=== PATIENT | female | born 1950 | race Caucasian/White ===

== ENCOUNTER 2019-02-22 18:45 | Inpatient (IN) | payer MEDICARE, MEDICAID ==
[~2019-02-22] VITALS: Ht 170.2 cm; Wt 42.9 kg
[~2019-02-22 18:45] MED LIST: CLON2TAB16 PO; HYDR-36 PO; METH10TA2 PO; ONDA4TAB10 PO; OXYC15TA PO; TRAM-47 PO
--- NOTE | 2019-02-22 19:52 | NUR ---
PT BIB [facility] THROUGH TRIAGE FROM [facility] FOR MEDICAL CLEARANCE. PT STATES HX HEROIN AND AT [facility] FOR DETOX. PT STATES NOTICED A MASS TO RLQ APPROX. 1 WEEK AGO, RECENT INJECTION AT THAT SITE 2 WEEKS AGO. PT AAO X 4, DENIES N/V/FEVER/CHILLS. NAD, ROOM AIR, CALL LIGHT WITHIN REACH, DRESSED IN GOWN AND ATTACHED TO MONITOR. LAB AT BEDSIDE.
[2019-02-22 19:56] LABS: BASOPHILS # (AUTO) 0.01 x10^3/uL (0-0.1); BASOPHILS % (AUTO) 0 % (0-1); EOSINOPHILS # (AUTO) 0.07 x10^3/uL (0-0.4); EOSINOPHILS % (AUTO) 1 % (1-7); LYMPHOCYTES # (AUTO) 1.03 x10^3/uL (1-3.4); LYMPHOCYTES % (AUTO) 15 % (22-44); MD NO; MEAN CORPUSCULAR HEMOGLOBIN 29.7 pg (27.0-34.8); MEAN CORPUSCULAR HGB CONC 32.7 g/dL (32.4-35.8); MEAN CORPUSCULAR VOLUME 90.8 fL (80-100); MEAN PLATELET VOLUME 7.4 fL (7.4-10.4); MONOCYTES # (AUTO) 0.32 x10^3/uL (0.2-0.8); MONOCYTES % (AUTO) 5 % (2-9); NEUTROPHILS # (AUTO) 5.29 x10^3/uL (1.8-6.8); NEUTROPHILS % (AUTO) 79 % (42-75); PLATELET COUNT 238 x10^3/uL (130-400); RED CELL DISTRIBUTION WIDTH 14.2 % (9.6-15.2)
[2019-02-22] MEDS ORDERED: SODIUM CHLORIDE FLUSH 10ML SYR IVF ONE (20:00)
[2019-02-22 20:08] LABS: ALBUMIN 2.8 g/dL (3.4-5.0); ANION GAP 7 mmol/L (5-15); CALCIUM 8.6 mg/dL (8.5-10.1); CHLORIDE 106 mmol/L (98-107); CREATININE 0.81 mg/dL (0.55-1.02)
--- NOTE | 2019-02-22 21:02 | NUR ---
REPORT GIVEN TO CAIN GRIFFIN. CARE TRANSFERRED.
[2019-02-22 21:31] LABS: MICROSCOPIC NOT IND
[2019-02-22 21:37] LABS: CULTURE INDICATED? NO
[2019-02-22] MEDS ORDERED: VANCOMYCIN PER PHARMACY MC PRN ×2 (22:00→22:30)
[2019-02-22] MEDS ORDERED: AMPICILLIN/SULBACTAM 3 GM in SODIUM CHLORIDE 0.9% 100 ML IV ONE (22:00)
--- NOTE | 2019-02-22 22:02 | NUR ---
CARMEN RN: PT MOVED FROM 36 TO 38. PT UP TO RESTROOM. STEADY UPON AMBULATION TO AND FROM [facility]. NAD NOTED. PT AWARE WE ARE WAITING ON LAB/IMAGING RESULTS AND RECHECK BY DOROTHY HALL.
[2019-02-22] MEDS: SODIUM CHLORIDE 0.9% 1,000 ML IV SCH (22:20)
[2019-02-22] MEDS ORDERED: VANCOMYCIN PMX 1GM/200ML 200 ML IV ONE (22:30)
[2019-02-22] MEDS ORDERED: OXYcodone/APAP 5/325MG TABLET PO ONE (22:30)
[2019-02-22] MEDS ORDERED: OMNIPAQUE 350 MG/ML, 100ML BOTTLE ONE (23:03)
[2019-02-22] MEDS ORDERED: BUPR1FIL5 PO (23:07)
[2019-02-23 00:01] VITALS: BP 169/82
[2019-02-23] MEDS: SODIUM CHLORIDE 0.9% 1,000 ML IV SCH ×2 (00:08→19:46)
[2019-02-23] MEDS ORDERED: OXYcodone/APAP 5/325MG TABLET PO PRN ×2 (00:30→06:30)
[2019-02-23] MEDS ORDERED: PHARMACOKINETIC MONITORING MC PRN (02:30)
[2019-02-23] MEDS ORDERED: PHARMACOKINETIC CONSULTATION MC ONE (02:30)
[2019-02-23 05:02] LABS: BASOPHILS # (AUTO) 0.01 x10^3/uL (0-0.1); BASOPHILS % (AUTO) 0 % (0-1); EOSINOPHILS # (AUTO) 0.09 x10^3/uL (0-0.4); EOSINOPHILS % (AUTO) 2 % (1-7); LYMPHOCYTES # (AUTO) 1.09 x10^3/uL (1-3.4); LYMPHOCYTES % (AUTO) 22 % (22-44); MD NO; MEAN CORPUSCULAR HEMOGLOBIN 30.3 pg (27.0-34.8); MEAN CORPUSCULAR HGB CONC 33.4 g/dL (32.4-35.8); MEAN CORPUSCULAR VOLUME 90.7 fL (80-100); MEAN PLATELET VOLUME 7.3 fL (7.4-10.4); MONOCYTES # (AUTO) 0.32 x10^3/uL (0.2-0.8); MONOCYTES % (AUTO) 6 % (2-9); NEUTROPHILS # (AUTO) 3.55 x10^3/uL (1.8-6.8); NEUTROPHILS % (AUTO) 70 % (42-75); PLATELET COUNT 215 x10^3/uL (130-400); RED BLOOD COUNT 3.01 x10^6/uL (3.82-5.3); RED CELL DISTRIBUTION WIDTH 14.1 % (9.6-15.2)
[2019-02-23 05:14] LABS: ANION GAP 4 mmol/L (5-15); CALCIUM 7.8 mg/dL (8.5-10.1); CHLORIDE 110 mmol/L (98-107); CREATININE 0.54 mg/dL (0.55-1.02)
[2019-02-23 05:17] LABS: INTERNATIONAL NORMALIZED RATIO 1.03 (0.93-1.1); PROTHROMBIN TIME 10.8 Seconds (9.6-11.5)
[2019-02-23] MEDS: ONDANSETRON 2MG/ML, 2ML IVPush PRN (05:39)
[2019-02-23] MEDS: AMPICILLIN/SULBACTAM 3 GM in SODIUM CHLORIDE 0.9% 100 ML IV SCH ×3 (05:39→22:20)
[2019-02-23] MEDS ORDERED: FENTANYL PF 100 MCG/2ML ONE ×3 (06:52→07:44)
[2019-02-23] MEDS ORDERED: GLYCOPYRROLATE 0.2MG/1ML, 5ML ONE (07:19)
[2019-02-23] MEDS ORDERED: ONDANSETRON 2MG/ML, 2ML ONE (07:19)
[2019-02-23] MEDS ORDERED: NEOSTIGMINE 1 MG/ML, 10ML ONE (07:19)
[2019-02-23] MEDS ORDERED: CEFAZOLIN 1,000 MG ONE (07:19)
[2019-02-23] MEDS ORDERED: ROCURONIUM 10MG/ML,5ML ONE (07:19)
[2019-02-23] MEDS ORDERED: DEXAMETHASONE 4 MG/ML, 1ML ONE (07:19)
[2019-02-23] MEDS ORDERED: PROPOFOL 10 MG/ML, 20ML ONE (07:19)
[2019-02-23] MEDS ORDERED: SUCCINYLCHOLINE 20 MG/ML, 10ML ONE (07:19)
[2019-02-23] MEDS ORDERED: hydrALAzine 20 MG/ML, 1ML IV PRN (07:30)
[2019-02-23] MEDS ORDERED: PROMETHAZINE 25 MG/ML, 1ML IV PRN (07:30)
[2019-02-23] MEDS ORDERED: HALOPERIDOL 5 MG/ML IV PRN (07:30)
[2019-02-23] MEDS ORDERED: MEPERIDINE/PF 25MG/ML,1ML IVPush PRN (07:30)
[2019-02-23] MEDS ORDERED: LABETALOL 5MG/ML, 20ML IV PRN (07:30)
[2019-02-23] MEDS ORDERED: OXYcodone 5 MG/5 ML ORAL.SOL UDC PO PRN (07:30)
[2019-02-23] MEDS: FENTANYL PF 100 MCG/2ML IV PRN ×4 (07:35→07:58)
[2019-02-23] MEDS ORDERED: OXYcodone 5 MG/5 ML ORAL.SOL UDC ONE (07:45)
[2019-02-23] MEDS ORDERED: hydrALAzine 20 MG/ML, 1ML ONE (07:53)
[2019-02-23] MEDS ORDERED: HYDROmorphone 2 MG/ML, 1ML ONE (08:11)
[2019-02-23] MEDS: HYDROmorphone 2 MG/ML, 1ML IVPush PRN ×2 (08:13→08:21)
[2019-02-23] MEDS ORDERED: LORazepam 2 MG/ML, 1ML ONE (08:15)
[2019-02-23] MEDS ORDERED: LORazepam 2 MG/ML, 1ML IVPush PRN (08:30)
[2019-02-23] MEDS ORDERED: MORPHINE SULFATE 4 MG/ML, 1ML ONE (11:11)
[2019-02-23] MEDS: morphine SULFATE 10 MG/ML, 1ML IV PRN ×4 (11:15→20:43)
[2019-02-23] MEDS: OXYcodone/APAP 10/325MG TABLET PO PRN (12:09)
[2019-02-23 13:09] VITALS: BP 148/70
[2019-02-23] MEDS: LORazepam 2 MG/ML, 1ML IVPush PRN ×2 (15:31→22:20)
[2019-02-23 18:54] VITALS: BP 126/75
[2019-02-23 23:22] VITALS: BP 156/80
[2019-02-23] MEDS: VANCOMYCIN 900 MG in SODIUM CHLORIDE 0.9% 100 ML IV SCH (23:59)
[2019-02-24] MEDS: morphine SULFATE 10 MG/ML, 1ML IV PRN ×4 (01:19→17:46)
[2019-02-24] MEDS: OXYcodone/APAP 10/325MG TABLET PO PRN ×4 (02:23→22:09)
[2019-02-24 02:32] VITALS: BP 158/85
[2019-02-24 05:06] LABS: BASOPHILS # (AUTO) 0.02 x10^3/uL (0-0.1); BASOPHILS % (AUTO) 0 % (0-1); EOSINOPHILS # (AUTO) 0.03 x10^3/uL (0-0.4); EOSINOPHILS % (AUTO) 1 % (1-7); LYMPHOCYTES # (AUTO) 1.43 x10^3/uL (1-3.4); LYMPHOCYTES % (AUTO) 31 % (22-44); MD NO; MEAN CORPUSCULAR HEMOGLOBIN 30.6 pg (27.0-34.8); MEAN CORPUSCULAR HGB CONC 33.6 g/dL (32.4-35.8); MEAN CORPUSCULAR VOLUME 91.2 fL (80-100); MEAN PLATELET VOLUME 7.5 fL (7.4-10.4); MONOCYTES # (AUTO) 0.21 x10^3/uL (0.2-0.8); MONOCYTES % (AUTO) 5 % (2-9); NEUTROPHILS # (AUTO) 2.91 x10^3/uL (1.8-6.8); NEUTROPHILS % (AUTO) 63 % (42-75); PLATELET COUNT 254 x10^3/uL (130-400); RED CELL DISTRIBUTION WIDTH 13.8 % (9.6-15.2)
[2019-02-24 05:12] LABS: CHLORIDE 111 mmol/L (98-107)
[2019-02-24 05:17] LABS: ANION GAP 4 mmol/L (5-15); CREATININE 0.64 mg/dL (0.55-1.02)
[2019-02-24] MEDS: AMPICILLIN/SULBACTAM 3 GM in SODIUM CHLORIDE 0.9% 100 ML IV SCH ×3 (05:59→22:08)
[2019-02-24] MEDS: SODIUM CHLORIDE 0.9% 1,000 ML IV SCH ×2 (06:02→16:30)
[2019-02-24 07:29] VITALS: BP 172/87
[2019-02-24] MEDS ORDERED: ENALAPRILAT 1.25 MG/ML, 1ML IV PRN (08:30)
[2019-02-24 09:15] VITALS: BP 148/76
[2019-02-24] MEDS: HEPARIN 5,000 UNITS/ML, 1ML SQ SCH ×2 (14:04→22:08)
[2019-02-24 14:20] VITALS: BP 146/83
[2019-02-24 19:00] VITALS: BP 147/75
[2019-02-24] MEDS: LORazepam 2 MG/ML, 1ML IVPush PRN ×2 (19:46→23:28)
[2019-02-24] MEDS: ONDANSETRON 2MG/ML, 2ML IVPush PRN (20:56)
[2019-02-24] MEDS ORDERED: DIPHENHYDRAMINE 25 MG CAPSULE PO ONE (21:30)
[2019-02-24] MEDS: VANCOMYCIN 900 MG in SODIUM CHLORIDE 0.9% 100 ML IV SCH (23:28)
[2019-02-25] MEDS: SODIUM CHLORIDE 0.9% 1,000 ML IV SCH ×3 (00:46→22:07)
[2019-02-25 01:02] VITALS: BP 149/87
[2019-02-25] MEDS: morphine SULFATE 10 MG/ML, 1ML IV PRN ×2 (03:49→09:16)
[2019-02-25] MEDS: HEPARIN 5,000 UNITS/ML, 1ML SQ SCH ×3 (06:30→22:04)
[2019-02-25] MEDS: AMPICILLIN/SULBACTAM 3 GM in SODIUM CHLORIDE 0.9% 100 ML IV SCH ×2 (06:30→14:06)
[2019-02-25] MEDS: OXYcodone/APAP 10/325MG TABLET PO PRN ×4 (06:31→19:58)
[2019-02-25 07:12] VITALS: BP 65/16
[2019-02-25 11:24] VITALS: BP 124/64
[2019-02-25 12:25] VITALS: BP 166/80
[2019-02-25 18:44] VITALS: BP 162/84
[2019-02-25] MEDS: LORazepam 2 MG/ML, 1ML IVPush PRN (19:39)
[2019-02-26 01:03] VITALS: BP 178/98
[2019-02-26 01:25] VITALS: BP 154/77
[2019-02-26] MEDS: AMPICILLIN/SULBACTAM 3 GM in SODIUM CHLORIDE 0.9% 100 ML IV SCH ×3 (03:32→19:02)
[2019-02-26] MEDS: HEPARIN 5,000 UNITS/ML, 1ML SQ SCH ×3 (05:52→21:37)
[2019-02-26] MEDS: OXYcodone/APAP 10/325MG TABLET PO PRN ×5 (05:53→21:37)
[2019-02-26 07:16] VITALS: BP 116/68
[2019-02-26] MEDS: morphine SULFATE 10 MG/ML, 1ML IV PRN (09:15)
[2019-02-26] MEDS: SODIUM CHLORIDE 0.9% 1,000 ML IV SCH (11:00)
[2019-02-26 15:05] VITALS: BP 143/75
[2019-02-26] MEDS: VANCOMYCIN 900 MG in SODIUM CHLORIDE 0.9% 100 ML IV SCH ×2 (17:32)
[2019-02-26 18:29] VITALS: BP 139/79
[2019-02-26] MEDS: LORazepam 2 MG/ML, 1ML IVPush PRN ×2 (18:33)
[2019-02-27 00:08] VITALS: BP 148/89
[2019-02-27] MEDS: LORazepam 2 MG/ML, 1ML IVPush PRN ×3 (00:11→19:52)
[2019-02-27] MEDS: SODIUM CHLORIDE 0.9% 1,000 ML IV SCH ×2 (01:00→14:00)
[2019-02-27] MEDS: OXYcodone/APAP 10/325MG TABLET PO PRN ×5 (03:38→21:49)
[2019-02-27] MEDS: AMPICILLIN/SULBACTAM 3 GM in SODIUM CHLORIDE 0.9% 100 ML IV SCH ×2 (03:38→11:07)
[2019-02-27] MEDS: HEPARIN 5,000 UNITS/ML, 1ML SQ SCH ×3 (05:18→21:49)
[2019-02-27 07:00] VITALS: BP 170/83
[2019-02-27 07:24] VITALS: BP 159/76
[2019-02-27] MEDS: ONDANSETRON 2MG/ML, 2ML IVPush PRN (09:10)
[2019-02-27] MEDS: VANCOMYCIN 900 MG in SODIUM CHLORIDE 0.9% 100 ML IV SCH (12:08)
[2019-02-27 13:08] VITALS: BP 146/77
[2019-02-27] MEDS: AMOXICILLIN/CLAV 875-125MG TABLET PO SCH ×2 (13:49→21:48)
[2019-02-27 20:00] VITALS: BP 161/80
[2019-02-27] MEDS: LORazepam 1MG TABLET PO PRN (21:48)
[2019-02-28 01:45] VITALS: BP 151/78
[2019-02-28] MEDS: OXYcodone/APAP 10/325MG TABLET PO PRN ×2 (05:36→20:52)
[2019-02-28] MEDS: LORazepam 1MG TABLET PO PRN ×2 (05:36→21:02)
[2019-02-28] MEDS: HEPARIN 5,000 UNITS/ML, 1ML SQ SCH ×3 (05:37→21:02)
[2019-02-28 07:03] VITALS: BP 167/76
[2019-02-28 12:38] VITALS: BP 123/63
[2019-02-28] MEDS: AMOXICILLIN/CLAV 875-125MG TABLET PO SCH (13:39)
[2019-02-28] MEDS: SODIUM CHLORIDE 0.9% 1,000 ML IV SCH ×3 (17:00→17:14)
[2019-02-28 20:10] VITALS: BP 142/82
[2019-03-01] MEDS: AMOXICILLIN/CLAV 875-125MG TABLET PO SCH ×2 (01:21→13:38)
[2019-03-01 01:57] VITALS: BP 155/81
[2019-03-01] MEDS: SODIUM CHLORIDE 0.9% 1,000 ML IV SCH ×3 (03:15→23:15)
[2019-03-01] MEDS: HEPARIN 5,000 UNITS/ML, 1ML SQ SCH ×3 (06:10→22:33)
[2019-03-01] MEDS: OXYcodone/APAP 10/325MG TABLET PO PRN ×4 (06:13→22:35)
[2019-03-01 07:26] VITALS: BP 158/84
[2019-03-01] MEDS: LORazepam 1MG TABLET PO PRN ×2 (10:34→21:03)
[2019-03-01 14:24] VITALS: BP 151/84
[2019-03-01 19:13] VITALS: BP 158/84
[2019-03-02] MEDS: AMOXICILLIN/CLAV 875-125MG TABLET PO SCH ×3 (01:28→22:31)
[2019-03-02 02:20] VITALS: BP 158/86
[2019-03-02] MEDS: OXYcodone/APAP 10/325MG TABLET PO PRN ×4 (03:52→22:30)
[2019-03-02] MEDS: HEPARIN 5,000 UNITS/ML, 1ML SQ SCH ×3 (06:26→22:30)
[2019-03-02] MEDS: LORazepam 1MG TABLET PO PRN ×2 (06:32→20:24)
[2019-03-02 06:37] VITALS: BP 166/83
[2019-03-02] MEDS: SODIUM CHLORIDE 0.9% 1,000 ML IV SCH (08:46)
[2019-03-02 13:23] VITALS: BP 182/93
[2019-03-02] MEDS ORDERED: POLYETHYLENE GLYCOL 17 GM PACKET ONE (14:47)
[2019-03-02] MEDS ORDERED: DOCUSATE 100 MG CAPSULE ONE (14:48)
[2019-03-02] MEDS ORDERED: SENNOSIDES 8.6 MG TABLET ONE (14:48)
[2019-03-02] MEDS ORDERED: SENNOSIDES 8.6 MG TABLET PO PRN (15:00)
[2019-03-02] MEDS ORDERED: SENNOSIDES 8.8 MG/5 ML ORAL SOL PO PRN (15:00)
[2019-03-02] MEDS ORDERED: DOCUSATE 100 MG CAPSULE PO PRN (15:00)
[2019-03-02] MEDS ORDERED: POLYETHYLENE GLYCOL 17 GM PACKET PO PRN (15:00)
[2019-03-02] MEDS ORDERED: SIMETHICONE 125 MG CHEW TAB PO PRN (15:00)
[2019-03-02] MEDS ORDERED: ONDANSETRON ODT 4 MG ONE (17:42)
[2019-03-02] MEDS: ONDANSETRON 2MG/ML, 2ML IVPush PRN (17:43)
[2019-03-02] MEDS ORDERED: BISACODYL 10 MG SUPP ONE (17:44)
[2019-03-02] MEDS ORDERED: BISACODYL 10 MG SUPP PR PRN (18:00)
[2019-03-02 19:10] VITALS: BP 150/82
[2019-03-03 02:00] VITALS: BP 151/85
[2019-03-03] MEDS: OXYcodone/APAP 10/325MG TABLET PO PRN ×4 (02:50→20:33)
[2019-03-03] MEDS: HEPARIN 5,000 UNITS/ML, 1ML SQ SCH ×3 (06:51→22:53)
[2019-03-03 07:00] VITALS: BP 159/83
[2019-03-03] MEDS: LORazepam 1MG TABLET PO PRN ×2 (09:31→17:58)
[2019-03-03] MEDS: AMOXICILLIN/CLAV 875-125MG TABLET PO SCH ×2 (09:31→22:53)
[2019-03-03 14:00] VITALS: BP 137/86
[2019-03-03 20:04] VITALS: BP 167/91
[2019-03-04] MEDS: LORazepam 1MG TABLET PO PRN ×3 (01:14→20:58)
[2019-03-04] MEDS ORDERED: ONDANSETRON ODT 4 MG PO PRN (01:30)
[2019-03-04 01:57] VITALS: BP 122/68
[2019-03-04] MEDS: OXYcodone/APAP 10/325MG TABLET PO PRN ×3 (03:44→20:58)
[2019-03-04] MEDS: HEPARIN 5,000 UNITS/ML, 1ML SQ SCH ×2 (06:23→17:03)
[2019-03-04 06:50] VITALS: BP 127/74
[2019-03-04 13:33] VITALS: BP 121/68
[2019-03-04 19:09] VITALS: BP 126/72
[2019-03-05 00:30] VITALS: BP 127/70
[2019-03-05] MEDS: HEPARIN 5,000 UNITS/ML, 1ML SQ SCH ×3 (01:31→17:22)
[2019-03-05] MEDS: LORazepam 1MG TABLET PO PRN ×2 (05:26→14:14)
[2019-03-05] MEDS: OXYcodone/APAP 10/325MG TABLET PO PRN (05:26)
[2019-03-05 08:00] VITALS: BP 134/67
[2019-03-05] MEDS ORDERED: OXYcodone/APAP 5/325MG TABLET PO PRN ×2 (10:30→14:30)
[2019-03-05 13:30] VITALS: BP 121/74
[2019-03-05] MEDS: OXYcodone/APAP 5/325MG TABLET PO PRN ×2 (14:45→22:36)
[2019-03-05] MEDS: IBUPROFEN 800 MG TABLET PO PRN ×2 (14:46→22:38)
[2019-03-05 19:07] VITALS: BP 134/81
[2019-03-06] MEDS: HEPARIN 5,000 UNITS/ML, 1ML SQ SCH ×3 (01:05→16:45)
[2019-03-06 01:29] VITALS: BP 150/80
[2019-03-06] MEDS: LORazepam 1MG TABLET PO PRN ×2 (04:32→16:45)
[2019-03-06 07:05] VITALS: BP 162/84
[2019-03-06] MEDS: IBUPROFEN 800 MG TABLET PO PRN ×2 (11:12→20:02)
[2019-03-06] MEDS: OXYcodone/APAP 5/325MG TABLET PO PRN ×2 (11:13→20:02)
[2019-03-06 13:33] VITALS: BP 138/82
[2019-03-06 18:38] VITALS: BP 156/82
[2019-03-07 00:08] VITALS: BP 155/85
[2019-03-07] MEDS: HEPARIN 5,000 UNITS/ML, 1ML SQ SCH ×3 (00:43→17:28)
[2019-03-07] MEDS: LORazepam 1MG TABLET PO PRN ×2 (00:48→22:55)
[2019-03-07] MEDS: OXYcodone/APAP 5/325MG TABLET PO PRN ×2 (06:11→17:05)
[2019-03-07] MEDS: IBUPROFEN 800 MG TABLET PO PRN ×2 (06:11→17:02)
[2019-03-07 07:21] VITALS: BP 133/2
[2019-03-07 13:26] VITALS: BP 121/63
[2019-03-07 19:37] VITALS: BP 124/69
[2019-03-08 00:53] VITALS: BP 117/65
[2019-03-08] MEDS: HEPARIN 5,000 UNITS/ML, 1ML SQ SCH ×3 (01:22→17:00)
[2019-03-08] MEDS: OXYcodone/APAP 5/325MG TABLET PO PRN ×2 (02:16→11:53)
[2019-03-08 07:55] VITALS: BP 129/84
[2019-03-08] MEDS ORDERED: ACETAMINOPHEN 325 MG TABLET PO PRN (11:30)
[2019-03-08] MEDS ORDERED: MORPHINE SULFATE 4 MG/ML, 1ML IVPush PRN (11:30)
[2019-03-08] MEDS: LORazepam 1MG TABLET PO PRN (11:51)
[2019-03-08] MEDS: IBUPROFEN 800 MG TABLET PO PRN (11:51)
[2019-03-08 14:50] VITALS: BP 146/85
[2019-03-08] MEDS ORDERED: SIME125T PO (15:06)
[2019-03-08] MEDS ORDERED: ACET325T26 PO (15:06)
[2019-03-08] MEDS ORDERED: DOCU-131 PO (15:06)
== END 2019-03-08 18:20 | disposition home or self-care (01) | DRG 579 ==
LOC: ED 22:00 → EDIP 22:20 → 4NE 23:27
PROVIDERS: ADMIT Internal Medicine; ATTEND Internal Medicine
PROC: 0T9B70Z Drainage of Bladder with Drainage Device, Via Natural or Artificial Opening (ICD-10-PCS; 2019-02-22)
PROC: 0K9K0ZZ Drainage of Right Abdomen Muscle, Open Approach (ICD-10-PCS; 2019-02-23)
PROC: 0K9L0ZZ Drainage of Left Abdomen Muscle, Open Approach (ICD-10-PCS; principal; 2019-02-23 05:45)
DX: L02.211 Cutaneous abscess of abdominal wall (principal); E43 Unspecified severe protein-calorie malnutrition; M60.009 Infective myositis, unspecified site; F11.20 Opioid dependence, uncomplicated; N39.0 Urinary tract infection, site not specified; Z68.1 Body mass index [BMI] 19.9 or less, adult; M06.9 Rheumatoid arthritis, unspecified; J44.9 Chronic obstructive pulmonary disease, unspecified; G89.4 Chronic pain syndrome; B18.2 Chronic viral hepatitis C; M79.7 Fibromyalgia; F17.210 Nicotine dependence, cigarettes, uncomplicated; K74.60 Unspecified cirrhosis of liver; Z90.710 Acquired absence of both cervix and uterus; Z98.1 Arthrodesis status; Z88.5 Allergy status to narcotic agent
CPT/HCPCS: 36415; 74177; 80048; 80202; 81003; 82040; 82565; 83605; 84145; 85025; 85610; 87040; 87070; 87075; 87076; 87077; 87186; 87205; G0378; J0295; J0690; J1100; J1170; J1644; J2405; J2704; J2710; J3010; J3370; Q0162; Q9967; J0330; J0360; J2060; J2270; J7030; Q0163

== ENCOUNTER 2021-01-01 23:43 | Emergency (ER) | payer MEDICARE, MEDICAID ==
[~2021-01-01] VITALS: Ht 170.2 cm; Wt 50.0 kg
[~2021-01-01 23:43] MED LIST changes: +ACET325T26 PO; +BUPR1FIL5 PO; +DOCU-131 PO; +HYDR-3248 PO; -HYDR-36 PO; -OXYC15TA PO; +OXYC15TA3 PO; +SIME125T PO
--- NOTE | 2021-01-01 23:49 | NUR ---
NEGATIVE STROKE SCALE.
--- NOTE | 2021-01-02 00:27 | NUR ---
PATIENT REPORTS FALLING SATURDAY 12/30 WITH POSITIVE LOC. SHE WAS GOING AFTER HER DOG WHEN SHE FELL ON THE [place]OCK[place]. SHE STATES THE PAIN IS NOW "JUST TOO MUCH". PATIENT ALSO BELIVES SHE HAS A UTI AND HAS BUNING WITH URINATION.
[2021-01-02 00:47] LABS: BASOPHILS % (AUTO) 0 % (0-1); EOSINOPHILS % (AUTO) 4 % (1-7); LYMPHOCYTES % (AUTO) 35 % (22-44); MEAN CORPUSCULAR HGB CONC 34.4 g/dL (32.4-35.8); MEAN PLATELET VOLUME 7.5 fL (7.4-10.4); MONOCYTES % (AUTO) 7 % (2-9); NEUTROPHILS % (AUTO) 54 % (42-75); PLATELET COUNT 198 x10^3/uL (130-400); RED BLOOD COUNT 3.74 x10^6/uL (3.82-5.3); RED CELL DISTRIBUTION WIDTH 13.6 % (9.6-15.2)
[2021-01-02 00:56] LABS: ANION GAP 7 mmol/L (5-15); CALCIUM 8.8 mg/dL (8.5-10.1); CHLORIDE 105 mmol/L (98-107); CREATININE 0.74 mg/dL (0.55-1.02)
--- NOTE | 2021-01-02 00:58 | NUR ---
PATIENT TAKEN TO RESTROOM UPON RETURN FROM CT. UA COLLECTED AND SENT TO LAB.
[2021-01-02] MEDS ORDERED: HYDROmorphone 2 MG/ML, 1ML ONE (01:17)
--- NOTE | 2021-01-02 01:21 | NUR ---
PATIENT MEDICATED PER MAR.
[2021-01-02] MEDS ORDERED: HYDROmorphone 1 MG/ML, 1ML INJ IM ONE (01:30)
[2021-01-02] MEDS ORDERED: HYDROmorphone 2 MG/ML, 1ML IM ONE (01:30)
[2021-01-02 01:35] LABS: MICROSCOPIC AUTO
--- NOTE | 2021-01-02 02:39 | NUR ---
PATIENT ASSISTED TO RESTROOM AFTER SHE RETURNED FROM RADIOLOGY. AMBULATED WITH STEADY GAIT.
[2021-01-02 03:39] VITALS: BP 164/82
--- NOTE | 2021-01-02 03:42 | NUR ---
PATIENT SLEEPING ON CYNTHIA GALVEZ AT THIS TIME, VSS, WILL CONTINUE TO MONITOR.
--- NOTE | 2021-01-02 04:46 | NUR ---
Patient given discharge instructions and they have confirmed that they understand the instructions. Patient ambulatory with steady gait. NAD, all questions answered appropriately, denies additional needs at this time. No personal belongings left in room after discharge.
== END 2021-01-02 04:47 | disposition home or self-care (01) ==
LOC: ED 01-02 01:00
DX: S16.1XXA Strain of muscle, fascia and tendon at neck level, initial encounter (principal); S09.90XA Unspecified injury of head, initial encounter; R55 Syncope and collapse; M47.812 Spondylosis without myelopathy or radiculopathy, cervical region; N39.0 Urinary tract infection, site not specified; R00.0 Tachycardia, unspecified; F17.200 Nicotine dependence, unspecified, uncomplicated; Z72.9 Problem related to lifestyle, unspecified; M19.90 Unspecified osteoarthritis, unspecified site; G89.29 Other chronic pain; Z90.89 Acquired absence of other organs; W01.0XXA Fall on same level from slipping, tripping and stumbling without subsequent striking against object, initial encounter; Y93.89 Activity, other specified; Y92.410 Unspecified street and highway as the place of occurrence of the external cause; Y99.8 Other external cause status
CPT/HCPCS: 36415; 70450; 71101; 72125; 73030; 80048; 81001; 85025; 87077; 87086; 96372; 99285; J1170; 87186

== ENCOUNTER 2021-01-09 19:06 | Emergency (ER) | payer MEDICARE, MEDICAID ==
[~2021-01-09] VITALS: Ht 170.2 cm; Wt 50.0 kg
[2021-01-09] MEDS ORDERED: DEXAMETHASONE 4 MG TABLET PO ONE (20:00)
--- NOTE | 2021-01-09 20:45 | NUR ---
Pt to room from lobby at this time.
--- NOTE | 2021-01-09 20:50 | NUR ---
DR. BELTRÁN AT BEDSIDE.
[2021-01-09] MEDS ORDERED: DEXAMETHASONE 4 MG TABLET ONE (21:00)
[2021-01-09] MEDS ORDERED: SODIUM CHLORIDE FLUSH 10ML SYR IVF ONE (21:00)
[2021-01-09] MEDS ORDERED: SODIUM CHLORIDE 0.9% 1,000ML IVBOLUS ONE (21:00)
[2021-01-09] MEDS ORDERED: IBUPROFEN 600 MG TABLET PO ONE (21:30)
[2021-01-09] MEDS ORDERED: FILTER 0.22 MICRON IV ONE (21:30)
[2021-01-09] MEDS ORDERED: CASIRIVIMAB 600 MG, IMDEVIMAB (REGN10987) 600 MG in SODIUM CHLORIDE 0.9% 250 ML IVPB ONE (21:30)
[2021-01-09 21:41] LABS: BASOPHILS % (AUTO) 1 % (0-1); EOSINOPHILS % (AUTO) 3 % (1-7); LYMPHOCYTES % (AUTO) 32 % (22-44); MEAN CORPUSCULAR HEMOGLOBIN 31.4 pg (27.0-34.8); MEAN CORPUSCULAR HGB CONC 33.8 g/dL (32.4-35.8); MEAN PLATELET VOLUME 7.4 fL (7.4-10.4); MONOCYTES % (AUTO) 7 % (2-9); NEUTROPHILS % (AUTO) 57 % (42-75); PLATELET COUNT 204 x10^3/uL (130-400); RED BLOOD COUNT 3.56 x10^6/uL (3.82-5.3); RED CELL DISTRIBUTION WIDTH 13.2 % (9.6-15.2)
--- NOTE | 2021-01-09 21:47 | NUR ---
ATTEMPT TO PLACED PIV X2.
[2021-01-09 21:50] LABS: ALBUMIN 3.2 g/dL (3.4-5.0); ANION GAP 6 mmol/L (5-15); CALCIUM 8.4 mg/dL (8.5-10.1); CHLORIDE 107 mmol/L (98-107); CREATININE 0.51 mg/dL (0.55-1.02)
[2021-01-09] MEDS ORDERED: IBUPROFEN 600 MG TABLET ONE (22:56)
--- NOTE | 2021-01-09 23:05 | NUR ---
REPORT TO DAE BARLOW. DR. BELTRÁN AT BEDSIDE FOR IV PLACEMENT.
[2021-01-10] MEDS ORDERED: PROCHLORPERAZINE 5 MG/ML, 2ML IVPush ONE
[2021-01-10] MEDS ORDERED: DIPHENHYDRAMINE 50 MG/ML, 1ML IV ONE
[2021-01-10] MEDS ORDERED: DIPHENHYDRAMINE 50 MG/ML, 1ML ONE (00:01)
[2021-01-10] MEDS ORDERED: PROCHLORPERAZINE 5 MG/ML, 2ML ONE (00:01)
[2021-01-10] MEDS ORDERED: ENALAPRILAT 1.25 MG/ML, 2ML IV ONE ×2 (01:00)
[2021-01-10] MEDS ORDERED: ENALAPRILAT 1.25 MG/ML, 1ML ONE (01:15)
--- NOTE | 2021-01-10 01:24 | NUR ---
DR BELTRÁN STARTED AN ULTRASOUND IV AND I INFUSED IV REGENERON MEDICATION. PT TOLERATED WELL WITH NO ADVERSE REACTIONS. PT WITH HYPERTENSION, DR BELTRÁN NOTIFIED AND PT MEDICATED WITH IV ANTIHYPERTENSIVES. SEE VS SPREADSHEET
[2021-01-10] MEDS ORDERED: LIDOCAINE 1%, 10ML INFIL ONE (03:30)
--- NOTE | 2021-01-10 04:09 | NUR ---
PT SIGNED CONSENT FOR LP. PT TOLERATED WELL. CSF WALKED TO LAB
[2021-01-10 04:16] LABS: GLUCOSE, CSF 60 mg/dL (40-80); TOTAL PROTEIN,CSF 71 mg/dL (15-45)
[2021-01-10 05:03] VITALS: BP 151/86
--- NOTE | 2021-01-10 05:03 | NUR ---
PT EDUCATED ON TEST RESULTS. PT TO BE DISCHARGED.
== END 2021-01-10 05:13 | disposition home or self-care (01) ==
LOC: ED 20:57
DX: B34.9 Viral infection, unspecified (principal); G43.C1 Periodic headache syndromes in child or adult, intractable; Z20.822 Contact with and (suspected) exposure to COVID-19; I10 Essential (primary) hypertension; R06.02 Shortness of breath; F17.200 Nicotine dependence, unspecified, uncomplicated; Z86.19 Personal history of other infectious and parasitic diseases
CPT/HCPCS: 36415; 70450; 71045; 80048; 82040; 82945; 84157; 85025; 87070; 87205; 89051; 93005; 96361; 96374; 96375; 99285; J0780; J1200; J7030; M0243; U0003; U0005